=== PATIENT | female | born 1990 | race Caucasian/White ===

== ENCOUNTER 2023-01-16 22:55 | Emergency (ER) | payer SELFPAY ==
[~2023-01-16] VITALS: Ht 160 cm; Wt 59.0 kg
[2023-01-16 23:00] VITALS: BP 132/88; PULSE 96; RESP 16; TEMP 98.2; O2SAT 98
== END 2023-01-17 01:35 | disposition left against medical advice (07) ==
LOC: ER 22:55
DX: Z53.21 Procedure and treatment not carried out due to patient leaving prior to being seen by health care provider (principal)
CPT/HCPCS: 99281